=== PATIENT | female | born 1955 | race Caucasian/White ===

== ENCOUNTER → 2016-09-13 | Outpatient (CLI) | payer BC | LOC: RAD 07:41 | DX: R10.11 Right upper quadrant pain (principal) ==

== ENCOUNTER → 2016-11-01 | Outpatient (CLI) | payer BC | LOC: MAMMO 12:08 | DX: Z12.31 Encounter for screening mammogram for malignant neoplasm of breast (principal) | CPT/HCPCS: G0202 ==

== ENCOUNTER → 2017-06-30 | Outpatient (CLI) | payer BC | LOC: CARDLAB 08:14 → CARDREHAB 08:57 → CARDLAB 12:20 | DX: R07.89 Other chest pain (principal) | CPT/HCPCS: A9500 ==

== ENCOUNTER → 2017-07-03 | Outpatient (CLI) | payer BC | LOC: VAS 16:43 → RAD 17:00 | DX: I51.7 Cardiomegaly (principal) ==

== ENCOUNTER → 2017-09-22 | Outpatient (CLI) | payer BC ==
[2017-09-22 13:37] LABS: HEMATOCRIT 46.4 % (37.0-47.0); HEMOGLOBIN 15.4 g/dL (12.5-16.0); MEAN PLATELET VOLUME 9.7 fl (7.4-10.4); RED BLOOD COUNT 5.3 M/mm3 (4.10-5.30); RED CELL DISTRIBUTION WIDTH 12.6 % (11.5-14.5); WHITE BLOOD COUNT 5.5 K/mm3 (4.8-10.8)
== END ==
LOC: LAB 13:23
PROVIDERS: Family Medicine
DX: D75.1 Secondary polycythemia (principal)

== ENCOUNTER → 2017-10-09 | Outpatient (CLI) | payer BC ==
[2017-10-09 11:52] LABS: HEMATOCRIT 45.4 % (37.0-47.0); HEMOGLOBIN 15.1 g/dL (12.5-16.0); MEAN PLATELET VOLUME 9.5 fl (7.4-10.4); RED BLOOD COUNT 5.2 M/mm3 (4.10-5.30); RED CELL DISTRIBUTION WIDTH 12.6 % (11.5-14.5); WHITE BLOOD COUNT 5.2 K/mm3 (4.8-10.8)
== END ==
LOC: LAB 11:38
PROVIDERS: Internal Medicine Hematology & Oncology
DX: D75.1 Secondary polycythemia (principal)

== ENCOUNTER → 2017-10-23 | Outpatient (CLI) | payer BC ==
[2017-10-23 13:34] LABS: HEMATOCRIT 43.8 % (37.0-47.0); HEMOGLOBIN 14.5 g/dL (12.5-16.0); MEAN PLATELET VOLUME 9.2 fl (7.4-10.4); RED BLOOD COUNT 4.94 M/mm3 (4.10-5.30); RED CELL DISTRIBUTION WIDTH 12.9 % (11.5-14.5); WHITE BLOOD COUNT 7.8 K/mm3 (4.8-10.8)
== END ==
LOC: LAB 13:21
PROVIDERS: Internal Medicine Hematology & Oncology
DX: D75.1 Secondary polycythemia (principal)

== ENCOUNTER → 2017-11-06 | Outpatient (CLI) | payer BC ==
[2017-11-06 12:54] LABS: HEMOGLOBIN 14.5 g/dL (12.5-16.0); MEAN PLATELET VOLUME 9.7 fl (7.4-10.4); RED BLOOD COUNT 4.97 M/mm3 (4.10-5.30); RED CELL DISTRIBUTION WIDTH 12.9 % (11.5-14.5); WHITE BLOOD COUNT 5.4 K/mm3 (4.8-10.8)
== END ==
LOC: LAB 12:43
PROVIDERS: Internal Medicine Hematology & Oncology
DX: D75.1 Secondary polycythemia (principal)

== ENCOUNTER → 2017-11-22 | Outpatient (CLI) | payer BC ==
[2017-11-22 13:23] LABS: HEMATOCRIT 46.3 % (37.0-47.0); HEMOGLOBIN 15.5 g/dL (12.5-16.0); MEAN PLATELET VOLUME 10.9 fl (7.4-10.4); RED BLOOD COUNT 5.25 M/mm3 (4.10-5.30); RED CELL DISTRIBUTION WIDTH 12.9 % (11.5-14.5); WHITE BLOOD COUNT 6.1 K/mm3 (4.8-10.8)
== END ==
LOC: LAB 13:01
PROVIDERS: Internal Medicine Hematology & Oncology
DX: D75.1 Secondary polycythemia (principal)

== ENCOUNTER → 2017-12-06 | Outpatient (CLI) | payer BC ==
[2017-12-06 13:03] LABS: HEMATOCRIT 44.8 % (37.0-47.0); HEMOGLOBIN 14.9 g/dL (12.5-16.0)
== END ==
LOC: LAB 12:36
PROVIDERS: Internal Medicine Hematology & Oncology
DX: D75.1 Secondary polycythemia (principal)

== ENCOUNTER → 2018-01-30 | Outpatient (CLI) | payer BC ==
[2018-01-30 11:14] LABS: HEMATOCRIT 49.2 % (37.0-47.0); MEAN PLATELET VOLUME 9.5 fl (7.4-10.4); RED BLOOD COUNT 5.61 M/mm3 (4.10-5.30); RED CELL DISTRIBUTION WIDTH 12.5 % (11.5-14.5); WHITE BLOOD COUNT 5.1 K/mm3 (4.8-10.8)
== END ==
LOC: LAB 10:57
PROVIDERS: Internal Medicine Hematology & Oncology
DX: D75.1 Secondary polycythemia (principal)

== ENCOUNTER → 2018-06-12 | Outpatient (CLI) | payer BC ==
[2018-06-12 13:42] LABS: HEMATOCRIT 46.3 % (37.0-47.0); HEMOGLOBIN 15.4 g/dL (12.5-16.0); MEAN PLATELET VOLUME 9.8 fl (7.4-10.4); RED BLOOD COUNT 5.31 M/mm3 (4.10-5.30); RED CELL DISTRIBUTION WIDTH 12.7 % (11.5-14.5); WHITE BLOOD COUNT 5.5 K/mm3 (4.8-10.8)
== END ==
LOC: LAB 13:22
PROVIDERS: Internal Medicine Hematology & Oncology
DX: D75.1 Secondary polycythemia (principal)

== ENCOUNTER → 2018-08-09 | Outpatient (CLI) | payer BC ==
[2018-08-09 12:15] LABS: HEMATOCRIT 44.8 % (37.0-47.0); HEMOGLOBIN 14.3 g/dL (12.5-16.0); MEAN PLATELET VOLUME 9.9 fl (7.4-10.4); RED BLOOD COUNT 5.13 M/mm3 (4.10-5.30); RED CELL DISTRIBUTION WIDTH 12.2 % (11.5-14.5); WHITE BLOOD COUNT 5.9 K/mm3 (4.8-10.8)
== END ==
LOC: LAB 11:36
PROVIDERS: Internal Medicine Hematology & Oncology
DX: D75.1 Secondary polycythemia (principal)

== ENCOUNTER → 2018-08-23 | Outpatient (CLI) | payer BC ==
[2018-08-23 12:28] LABS: HEMATOCRIT 46.3 % (37.0-47.0); HEMOGLOBIN 15.1 g/dL (12.5-16.0); MEAN PLATELET VOLUME 9.8 fl (7.4-10.4); RED BLOOD COUNT 5.43 M/mm3 (4.10-5.30); RED CELL DISTRIBUTION WIDTH 12.1 % (11.5-14.5); WHITE BLOOD COUNT 5.2 K/mm3 (4.8-10.8)
== END ==
LOC: LAB 12:15
PROVIDERS: Internal Medicine Hematology & Oncology
DX: D75.1 Secondary polycythemia (principal)

== ENCOUNTER → 2018-09-06 | Outpatient (CLI) | payer BC ==
[2018-09-06 12:08] LABS: HEMATOCRIT 41.8 % (37.0-47.0); HEMOGLOBIN 13.2 g/dL (12.5-16.0); MEAN PLATELET VOLUME 9.7 fl (7.4-10.4); RED BLOOD COUNT 4.92 M/mm3 (4.10-5.30); RED CELL DISTRIBUTION WIDTH 12.1 % (11.5-14.5); WHITE BLOOD COUNT 5.2 K/mm3 (4.8-10.8)
== END ==
LOC: LAB 11:49
PROVIDERS: Internal Medicine Hematology & Oncology
DX: D75.1 Secondary polycythemia (principal)

== ENCOUNTER → 2018-09-20 | Outpatient (CLI) | payer BC ==
[2018-09-20 12:36] LABS: HEMATOCRIT 43.1 % (37.0-47.0); HEMOGLOBIN 13.5 g/dL (12.5-16.0)
[2018-09-20 12:58] LABS: BASO # 0.1 (0.02-0.10); EOS # 0.4 (0.04-0.40); EOS % 7.3 % (1.0-5.0); LYMPH# 1.8 (1.50-4.00); MEAN CELL VOLUME 84 fl (78-100); MEAN CORPUSCULAR HEMOGLOBIN 27 pg (27-31); MEAN CORPUSCULAR HGB CONC 32 g/dL (33-37); MONO # 0.4 (0.20-0.80); NEU # 2.6 (1.40-6.50); PLATELET COUNT 277 K/mm3 (130-400); RED BLOOD COUNT 5.08 M/mm3 (4.10-5.30); RED CELL DISTRIBUTION WIDTH 12.4 % (11.5-14.5); WHITE BLOOD COUNT 5.4 K/mm3 (4.8-10.8)
== END ==
LOC: LAB 12:19
PROVIDERS: Internal Medicine Hematology & Oncology
DX: D75.1 Secondary polycythemia (principal)

== ENCOUNTER → 2019-08-02 | Outpatient (CLI) | payer BC ==
[2019-08-02 13:09] LABS: HEMATOCRIT 45.3 % (37.0-47.0); HEMOGLOBIN 14.2 g/dL (12.5-16.0)
== END ==
LOC: LAB 12:58
PROVIDERS: Internal Medicine Hematology & Oncology
DX: D75.1 Secondary polycythemia (principal)

== ENCOUNTER → 2020-02-12 | Outpatient (CLI) | payer BC | LOC: MAMMO 14:20 | DX: Z12.31 Encounter for screening mammogram for malignant neoplasm of breast (principal); Z13.820 Encounter for screening for osteoporosis; Z78.0 Asymptomatic menopausal state ==

== ENCOUNTER → 2020-05-04 | Outpatient (CLI) | payer BC | LOC: RAD 16:00 → VAS 16:30 | DX: R06.00 Dyspnea, unspecified (principal) ==

== ENCOUNTER → 2020-07-21 | Outpatient (CLI) | payer BC | LOC: RAD 08:49 | DX: R91.1 Solitary pulmonary nodule (principal) ==

== ENCOUNTER → 2020-08-07 | Outpatient (CLI) | payer BC ==
[2020-08-07 11:33] LABS: HEMATOCRIT 45.9 % (37.0-47.0); HEMOGLOBIN 14.8 g/dL (12.5-16.0)
== END ==
LOC: LAB 11:12
DX: D75.1 Secondary polycythemia (principal); Z92.89 Personal history of other medical treatment; Z79.899 Other long term (current) drug therapy

== ENCOUNTER → 2022-03-08 | Outpatient (CLI) | payer BC | LOC: MAMMO 09:06 | DX: Z12.31 Encounter for screening mammogram for malignant neoplasm of breast (principal); Z13.820 Encounter for screening for osteoporosis; M85.80 Other specified disorders of bone density and structure, unspecified site; M81.0 Age-related osteoporosis without current pathological fracture; Z78.0 Asymptomatic menopausal state ==

== ENCOUNTER 2022-04-21 08:00 | Outpatient (RCR) | payer BC | END 2022-05-17 | disposition home or self-care (01) | LOC: PT | DX: M25.511 Pain in right shoulder (principal); G89.29 Other chronic pain ==

== ENCOUNTER → 2022-06-14 | Outpatient (RCR) | payer BC | LOC: PT | DX: M25.511 Pain in right shoulder (principal) ==

== ENCOUNTER 2022-06-15 10:48 | Outpatient (RCR) | payer BC | END 2022-07-15 | disposition home or self-care (01) | LOC: PT | DX: M25.511 Pain in right shoulder (principal) ==

== ENCOUNTER → 2023-06-27 | Outpatient (CLI) | payer BC ==
[~2023-06-27] MED LIST: CENTRUM SILVER1 EAC1 PO; DAILY VALUE1 EACH PO; LEVOTHYROXINE0.15 MG PO; LOW DOSE ASPIRI81 M1 PO; PLAQUENIL200 MG PO; VITAMIN K100 MC1 PO; XIIDRA1 EACH OP
== END ==
LOC: LAB 11:48
DX: D75.1 Secondary polycythemia (principal)

== ENCOUNTER → 2023-06-27 | Outpatient (CLI) | payer BC ==
[~2023-06-27] VITALS: Ht 170.2 cm; Wt 86.9 kg
[~2023-06-27] MED LIST changes: +NS 500 ML IV SCH
[2023-06-27 12:38] LABS: HEMOGLOBIN 15.6 g/dL (12.5-16.0)
[2023-06-27 12:53] VITALS: BP 162/87
[2023-06-27 13:42] VITALS: BP 159/89
== END ==
LOC: AMSURD 11:48
PROVIDERS: Internal Medicine
DX: D75.1 Secondary polycythemia (principal)
CPT/HCPCS: J7040